=== PATIENT | male | born 1995 | race Caucasian/White ===

== ENCOUNTER 2019-01-29 16:35 | Emergency (ER) | payer SELFPAY ==
[~2019-01-29] VITALS: Ht 170.2 cm; Wt 76.7 kg
--- NOTE | 2019-01-29 17:00 | NUR ---
WEB FEEDER: PT AMBULATORY TO ROOM FROM LOBBY
[2019-01-29 17:04] LABS: MICROSCOPIC AUTO
[2019-01-29 17:05] LABS: BASOPHILS # (AUTO) 0.03 x10^3/uL (0-0.1); BASOPHILS % (AUTO) 0 % (0-1); EOSINOPHILS # (AUTO) 0.07 x10^3/uL (0-0.4); EOSINOPHILS % (AUTO) 0 % (1-7); LYMPHOCYTES # (AUTO) 2.61 x10^3/uL (1-3.4); LYMPHOCYTES % (AUTO) 16 % (22-44); MD NO; MEAN CORPUSCULAR HEMOGLOBIN 33.2 pg (27.5-34.5); MEAN CORPUSCULAR HGB CONC 34.9 g/dL (33.2-36.2); MEAN CORPUSCULAR VOLUME 95.3 fL (81-97); MEAN PLATELET VOLUME 8.6 fL (7.4-10.4); MONOCYTES # (AUTO) 0.72 x10^3/uL (0.2-0.8); MONOCYTES % (AUTO) 5 % (2-9); NEUTROPHILS # (AUTO) 12.53 x10^3/uL (1.8-6.8); NEUTROPHILS % (AUTO) 79 % (42-75); PLATELET COUNT 261 x10^3/uL (130-400); RED BLOOD COUNT 5.05 x10^6/uL (4.38-5.82); RED CELL DISTRIBUTION WIDTH 12.3 % (9.4-14.8)
[2019-01-29 17:08] LABS: CULTURE INDICATED? YES
--- NOTE | 2019-01-29 17:15 | NUR ---
First contact with pt. Pt c/o R testicle pain radiating to R groin starting yesterday. Pt placed in gown, positioned for comfort in bed. Continuous oxygen and BP monitors applied, all safety measures observed.
[2019-01-29 17:19] LABS: ALBUMIN 4.5 g/dL (3.4-5.0); ANION GAP 8 mmol/L (5-15); CALCIUM 9.3 mg/dL (8.5-10.1); CHLORIDE 105 mmol/L (98-107); CREATININE 0.93 mg/dL (0.7-1.3)
--- NOTE | 2019-01-29 18:00 | NUR ---
Dr. Paiz at bedside to evaluate pt.
--- NOTE | 2019-01-29 18:10 | NUR ---
Pt to US via all.
[2019-01-29] MEDS ORDERED: KETOROLAC 30 MG/1 ML ONE (18:25)
[2019-01-29] MEDS ORDERED: KETOROLAC 30 MG/1 ML IM ONE (18:30)
--- NOTE | 2019-01-29 18:30 | NUR ---
Pt back from US, medicated per DEC. Pt ambulatory to bathroom and back to bed without difficulty.
--- NOTE | 2019-01-29 19:01 | NUR ---
RECEIVED BS REPORT FROM PANFILO TADEO TO ASSUME PT. CARE.
--- NOTE | 2019-01-29 19:39 | NUR ---
CHANTAL GARCIA IN TO DISCUSS PLAN FOR D/C WITH PT.
[2019-01-29 19:45] VITALS: BP 134/78
== END 2019-01-29 19:46 | disposition home or self-care (01) ==
LOC: ED 17:57
DX: N45.1 Epididymitis (principal); F17.210 Nicotine dependence, cigarettes, uncomplicated
CPT/HCPCS: 36415; 76870; 80048; 81001; 82040; 85025; 87086; 93975; 96372; 99284; J1885